=== PATIENT | male | born 1955 | race Caucasian/White ===

== ENCOUNTER 2024-12-28 11:10 | Outpatient (CLI) | payer MEDICARE, OTHER | END 2024-12-28 11:11 | disposition home or self-care (01) | LOC: MADRAD 11:10 | PROVIDERS: ATTEND Family Medicine | DX: J45.21 Mild intermittent asthma with (acute) exacerbation (principal); I77.810 Thoracic aortic ectasia | CPT/HCPCS: 71046 ==